=== PATIENT | female | born 2000 | race Caucasian/White ===

== ENCOUNTER 2020-03-27 17:24 | Emergency (ER) | payer OTHER, SELFPAY ==
[2020-03-27 17:32] VITALS: BP 144/85; PULSE 85; RESP 14; TEMP 37; O2SAT 100
--- NOTE | 2020-03-27 17:43 | ED.SKABFB ---
HPI - Skin/Abscess/Foreign Bdy General Chief complaint: Skin/Abscess/Foreign Body Stated complaint: left leg bite spot Time Seen by Provider: 03/27/20 17:43 Source: patient and RN notes reviewed History of Present Illness HPI narrative: Patient is a 20-year-old female who presents the urgent care with complaints of a bug bite to the inside of the left leg. Patient states that she noticed it approximately 1 week ago and over the last 2 to 3 days it has had the bull's-eye rash surrounding it . Patient states that she originally thought it was a mosquito bite from sitting outside and did not of ever removing a tick or seeing a tick on the leg. Denies of any fevers, malaise, fatigue. No other acute complaints. No acute distress noted. Patient aware of the plan of care. Some parts of this dictation were generated by voice recognition software and may contain typographical and/or grammatical inaccuracies. Related Data Home Medications Medication Instructions Recorded Confirmed norgestimate-ethinyl estradiol 1 tablet PO DAILY 03/27/20 03/27/20 [Estarylla] Allergies Allergy/AdvReac Type Severity Reaction Status Date / Time peanut Allergy Unknown Hives / Verified 03/27/20 17:49 Red Face Review of Systems Review of Systems: Narrative: CONSTITUTIONAL: Denies fever, chills, or sweats. EYES: Denies visual changes, redness, or discharge. ENT: Denies rhinorrhea, congestion, sore throat, or otalgia. CARDIOVASCULAR: Denies chest pain, palpitations, or edema. RESPIRATORY: Denies cough or dyspnea. GASTROINTESTINAL: Denies abdominal pain, nausea, vomiting, or diarrhea. GENITOURINARY: Denies dysuria or hematuria. SKIN: Reports of a bug bite to the inside of the left leg MUSCULOSKELETAL: Denies back pain, joint pain, or myalgia. NEUROLOGIC: Denies headache, numbness, or weakness. All other systems reviewed are negative, except as documented in HPI. PMFSH Comments At the time of my signature, I reviewed and agree with the nursing past medical, surgical, social, and family history. There is no relevant family history pertinent to the patient complaint. Exam Narrative: Exam Narrative: GENERAL: This is a well-nourished, well-developed patient, in no apparent distress. HEAD: normocephalic, atraumatic. EYES: PERRL. Sclera clear/white. Vision is grossly intact. EARS: External ears normal NOSE: External nose normal with no obvious nasal discharge, nares without redness, no rhinorrhea. THROAT: Mucous membranes moist NECK: Neck supple SKIN: 3 cm area of mild erythema with notable surrounding bull's-eye rash to the medial aspect of the left lower leg/medial knee NEURO: awake, alert, and oriented to person, place and time. There were no obvious focal neurologic abnormalities. EXTREMITIES: No clubbing, cyanosis, or edema. Course Vital Signs Vital signs: Vital Signs Temperature 98.6 F 03/27/20 17:32 Pulse Rate 85 03/27/20 17:32 Respiratory Rate 14 03/27/20 17:32 Blood Pressure 144/85 H 03/27/20 17:32 Pulse Oximetry 100 03/27/20 17:32 Temperature 98.6 F 03/27/20 17:32 Pulse Rate 85 03/27/20 17:32 Respiratory Rate 14 03/27/20 17:32 Blood Pressure 144/85 H 03/27/20 17:32 Pulse Oximetry 100 03/27/20 17:32 Reviewed-patient is informed that they may have pre-hypertension or hypertension based on a blood pressure reading in the department. I recommend the patient call the primary care provider listed on their discharge instructions or a physician of their choice this week to arrange follow-up for further evaluation of possible pre-hypertension or hypertension. MDM - Skin/Abscess/Foreign Bdy MDM Narrative Medical decision making narrative: Advised the patient to complete oral antibiotic regimen as prescribed. Make sure to eat and drink with the medication. Considering the bite is greater than 3 days old and you never removed the tick, the likelihood of any tickborne illness is very slim. However, if you dev
== END 2020-03-27 18:00 | disposition home or self-care (01) ==
PROVIDERS: Emergency Provider Nurse Practitioner Family
DX: S80.862A Insect bite (nonvenomous), left lower leg, initial encounter (principal); W57.XXXA Bitten or stung by nonvenomous insect and other nonvenomous arthropods, initial encounter
CPT/HCPCS: 99213; G0463

== ENCOUNTER 2022-04-21 13:52 | Outpatient (CLI) | payer OTHER, SELFPAY ==
--- NOTE | ~2022-04-21 | US_ITS ---
EXAMINATION: US thyroid DATE: 04/21/2022 14:42 INDICATION: Thyroid nodule. TECHNIQUE: Multiple ultrasound images of the thyroid were obtained. COMPARISON: None. FINDINGS: The right thyroid lobe measures 4.8 x 1.5 x 1.6 cm. The left thyroid lobe measures 4.2 x 1.0 x 1.4 c m. There is normal echotexture and echogenicity throughout the thyroid gland. No discrete nodules id entified. Normal vascular flow is present. IMPRESSION: 1. Normal thyroid. Reviewed, dictated and finalized at location A. IMPRESSION: 1. Normal thyroid.
== END 2022-04-21 13:53 | disposition home or self-care (01) ==
LOC: ANHIMG 13:59
DX: E04.1 Nontoxic single thyroid nodule (principal)
CPT/HCPCS: 76536